=== PATIENT | male | born 1950 | race Caucasian/White ===

== ENCOUNTER 2022-12-29 13:31 | Observation (INO) | payer BC, MEDICARE ==
--- NOTE | 2022-12-29 14:38 | ED ---
General Adult HPI <Satish Engel - Last Filed: 12/29/22 14:39> <Darling Castro - Last Filed: 12/29/22 23:43> - General Stated complaint: Abd Pain L side - History of Present Illness Initial comments: 72-year-old male presents to the ED with a chief complaint of abdominal pain. States that since this morning has some left lower abdominal pain. No nausea vomiting diarrhea. Last bowel movement yesterday. Denies fever. Denies blood in stool. Also notes some urinary frequency. (Satish Engel) I agree with the above HPI. Patient does have nausea now no vomiting. No fever or chills. No urinary symptoms. (Darling Castro) - Related Data Home Medications Medication Instructions Recorded Confirmed amLODIPine BESYLATE/BENAZEPRIL 1 cap PO DAILY 12/29/22 12/29/22 [Lotrel 5-10 mg Capsule] Allergies Allergy/AdvReac Type Severity Reaction Status Date / Time No Known Allergies Allergy Verified 12/29/22 23:04 Review of Systems ROS Other: All systems not noted in ROS Statement are negative. <Satish Engel - Last Filed: 12/29/22 14:39> ROS Other: All systems not noted in ROS Statement are negative. <Darling Castro - Last Filed: 12/29/22 23:43> ROS Statement: Those systems with pertinent positive or pertinent negative responses have been documented in the HPI. General Exam Limitations: no limitations General appearance: alert, in no apparent distress Eye exam: Present: normal appearance Neck exam: Present: normal inspection Extremities exam: Present: normal inspection Back exam: Present: normal inspection Neurological exam: Present: alert, oriented X3 <Satish Engel - Last Filed: 12/29/22 14:39> Respiratory exam: Present: normal lung sounds bilaterally. Absent: respiratory distress, wheezes, rales, rhonchi, stridor Cardiovascular Exam: Present: regular rate, normal rhythm, normal heart sounds. Absent: systolic murmur, diastolic murmur, rubs, gallop, clicks GI/Abdominal exam: Present: soft, tenderness (LLQ), normal bowel sounds. Absent: distended, guarding, rebound, rigid Neurological exam: Present: alert Psychiatric exam: Present: normal affect, normal mood Skin exam: Present: warm, dry, intact, normal color. Absent: rash <Darling Castro - Last Filed: 12/29/22 23:43> Course Vital Signs 12/29/22 12/29/22 12/29/22 14:37 20:57 22:31 Temperature 97.8 F 97.7 F Pulse Rate 66 58 L 61 Respiratory 18 18 Rate Blood Pressure 127/87 159/91 157/88 O2 Sat by Pulse 98 100 97 Oximetry Medical Decision Making <Satish Engel - Last Filed: 12/29/22 14:39> - Lab Data Result diagrams: 12/29/22 18:47 12/29/22 18:47 <Darling Castro - Last Filed: 12/29/22 23:43> - Medical Decision Making Quicknote portion performed. Signed Satish Engel PA-C (Satish Engel) Was pt. sent in by a medical professional or institution (, PA, POLICE OFFICER CRIME PREVENTION, urgent care, hospital, or longterm...) When possible be specific @ -No Did you speak to anyone other than the patient for history (EMS, parent, family, police, friend...)? What history was obtained from this source @ -No Did you review nursing and triage notes (agree or disagree)? Why? @ -I reviewed and agree with nursing and triage notes Were old charts reviewed (outside hosp., previous admission, EMS record, old EKG, old radiological studies, urgent care reports/EKG's, longterm records)? Report findings @ -No old charts were reviewed Differential Diagnosis (chest pain, altered mental status, abdominal pain women, abdominal pain men, vaginal bleeding, weakness, fever, dyspnea, syncope, headache, dizziness, GI bleed, back pain, seizure, CVA, palpatations, mental health)? @ -Differential Abdominal Pain Men: Appendicitis, cholecystitis, diverticulosis, ischemic bowel, pancreatitis, hepatitis, UTI, gastroenteritis, AAA, incarcerated hernia, bowel obstruction, constipation, inflammatory bowel, hepatitis, peptic ulcer disease, splenic infarction, perforated viscus, testicular torsion, this is not meant to be an all-inclusive list EKG interpreted by me (3pts min.). @ -As above X-rays interpreted by me (1pt min.). @ -None done CT interpreted by me (1pt min.). @ -8mm proximal left ureteral stone with moderate left hydronephrosis U/S interpreted by me (1pt. min.). @ -None done What testing was considered but not performed or refused? (CT, X-rays, U/S, labs)? Why? @ -None What meds were considered but not given or refused? Why? @ -None Did you discuss the management of the patient with other professionals (professionals i.e. , PA, POLICE OFFICER CRIME PREVENTION, lab, RT, psych nurse, certified social workers in health care, jacquard card cutter, teacher, security vehicle patrol officer, housing case manager)? Give summary @ -No Was smoking cessation discussed for >3mins.? @ -No Was critical care preformed (if so, how long)? @ -No Were there social determinants of health that impacted care today? How? (Homelessness, low income, unemployed, alcoholism, drug addiction, transportation, low edu. Level, literacy, decrease access to med. care, [facility], rehab)? @ -No Was there de-escalation of care discussed even if they declined (Discuss DNR or withdrawal of care, Hospice)? DNR status @ -No What co-morbidities impacted this encounter? (DM, HTN, Smoking, COPD, CAD, Cancer, CVA, ARF, Chemo, Hep., AIDS, mental health diagnosis, sleep apnea, morbid obesity)? @ -None Was patient admitted / discharged? Hospital course, mention meds given and route, prescriptions, significant lab abnormalities, going to OR and other pertinent info. @ -Admitted for kidney stone Dr. Padilla accepts admission Undiagnosed new problem with uncertain prognosis? @ -No Drug Therapy requiring intensive monitoring for toxicity (Heparin, Nitro, Insulin, Cardizem)? @ -No Were any procedures done? @ -No Diagnosis/symptom? @ -Kidney stone Acute, or Chronic, or Acute on Chronic? @ -Acute Uncomplicated (without systemic symptoms) or Complicated (systemic symptoms)? @ -Uncomplicated Side effects of treatment? @ -No Exacerbation, Progression, or Severe Exacerbation? @ -No Poses a threat to life or bodily function? How? (Chest pain, USA, CA, pneumonia, PE, COPD, DKA, ARF, appy, cholecystitis, CVA, Diverticulitis, Homicidal, Suicidal, threat to staff... and all critical care pts) @ No Dr. Gamino is my attending (Darling Castro) - Lab Data Lab Results 12/29/22 12/29/22 12/29/22 Range/Units 18:47 18:47 22:30 WBC 10.2 (3.8-10.6) k/uL RBC 4.70 (4.30-5.90) m/uL Hgb 14.6 (13.0-17.5) gm/dL Hct 42.9 (39.0-53.0) % MCV 91.2 (80.0-100.0) fL MCH 31.0 (25.0-35.0) pg MCHC 34.1 (31.0-37.0) g/dL RDW 12.0 (11.5-15.5) % Plt Count 199 (150-450) k/uL MPV 9.0 Neutrophils % 83 % Lymphocytes % 11 % Monocytes % 4 % Eosinophils % 0 % Basophils % 0 % Neutrophils # 8.5 H (1.3-7.7) k/uL Lymphocytes # 1.1 (1.0-4.8) k/uL Monocytes # 0.4 (0-1.0) k/uL Eosinophils # 0.0 (0-0.7) k/uL Basophils # 0.0 (0-0.2) k/uL Sodium 139 (137-145) mmol/L Potassium 4.5 (3.5-5.1) mmol/L Chloride 102 (98-107) mmol/L Carbon Dioxide 26 (22-30) mmol/L Anion Gap 11 mmol/L BUN 16 (9-20) mg/dL Creatinine 1.08 (0.66-1.25) mg/dL Est GFR (CKD-EPI)AfAm 79 (>60 ml/min/1.73 sqM) Est GFR (CKD-EPI)NonAf 68 (>60 ml/min/1.73 sqM) Glucose 101 H (74-99) mg/dL Calcium 9.7 (8.4-10.2) mg/dL Total Bilirubin 1.0 (0.2-1.3) mg/dL AST 33 (17-59) U/L ALT 23 (4-49) U/L Alkaline Phosphatase 99 (38-126) U/L Total Protein 8.0 (6.3-8.2) g/dL Albumin 4.6 (3.5-5.0) g/dL Amylase 63 (30-110) U/L Lipase 26 (23-300) U/L Urine Color Light Yellow Urine Appearance Clear (Clear) Urine pH 7.0 (5.0-8.0) Ur Specific [place] 1.011 (1.001-1.035) Urine Protein Negative (Negative) Urine Glucose (UA) Negative (Negative) Urine Ketones Negative (Negative) Urine Blood Negative (Negative) Urine Nitrite Negative (Negative) Urine Bilirubin Negative (Negative) Urine Urobilinogen <2.0 (<2.0) mg/dL Ur Leukocyte Esterase Negative (Negative) Disposition <Satish Engel - Last Filed: 12/29/22 14:39> <Darling Castro - Last Filed: 12/29/22 23:43> Clinical Impression: Kidney stone Disposition: ADMITTED IP TO THIS [facility] Condition: Good Referrals: Carlos Gonzalez [Primary Care Provider] - 1-2 days
[2022-12-29 19:39] LABS: Basophils % (A) 0 %; Eosinophils % (A) 0 %; HCT 42.9 % (39.0-53.0); HGB 14.6 gm/dL (13.0-17.5); Lymphocytes # (A) 1.1 k/uL (1.0-4.8); Lymphocytes % (A) 11 %; MCHC 34.1 g/dL (31.0-37.0); MCV 91.2 fL (80.0-100.0); Monocytes # (A) 0.4 k/uL (0-1.0); Monocytes % (A) 4 %; Neutrophils # (A) 8.5 k/uL (1.3-7.7); Neutrophils % (A) 83 %; Platelet Count 199 k/uL (150-450); WBC 10.2 k/uL (3.8-10.6)
[2022-12-29 19:46] LABS: ALT 23 U/L (4-49); AST 33 U/L (17-59); African American GFR (CKD) 79 (>60 ml/min/1.73 sqM); Albumin 4.6 g/dL (3.5-5.0); Alkaline Phosphatase 99 U/L (38-126); Amylase 63 U/L (30-110); Anion Gap 11 mmol/L; Blood Urea Nitrogen 16 mg/dL (9-20); Calcium 9.7 mg/dL (8.4-10.2); Carbon Dioxide 26 mmol/L (22-30); Chloride 102 mmol/L (98-107); Glucose 101 mg/dL (74-99); Lipase 26 U/L (23-300); Non-African American GFR(CKD) 68 (>60 ml/min/1.73 sqM); Potassium 4.5 mmol/L (3.5-5.1); Sodium 139 mmol/L (137-145)
--- NOTE | 2022-12-29 19:59 | CT ---
EXAMINATION TYPE: CT abdomen pelvis wo con DATE OF EXAM: 12/29/2022 COMPARISON: None INDICATION: LLQ pain DLP: 683 mGycm, Automated exposure control for dose reduction was used. CONTRAST: 0 mL of Isovue 300. Study performed without Oral Contrast TECHNIQUE: Axial images were obtained from above the diaphragm to the pubic rami in the axial plane a t 5 mm thick sections. Reconstructed images are reviewed on the computer in the coronal plane. FINDINGS: Limited CT sections are obtained the lung bases. The lung bases are clear. Coronary artery calcific ation is noted. CT ABDOMEN: Liver: Normal Spleen: Normal Pancreas: Normal Adrenal glands: The adrenal glands are normal. Gallbladder: Normal Kidneys: No masses are evident. Cysts are present bilaterally. There is a moderate left hydronephrosi s. An obstructing 0.8 cm proximal left ureteral stone is present, series 201 image 45. There is a non obstructing renal stone in the inferior pole right kidney measuring 0.4 cm. Aorta: Vascular calcification is within the aorta. Inferior vena cava: Normal. CT PELVIS: Loops of bowel within the abdomen and pelvis are normal. A few diverticuli are present without acute diverticulitis. There are loops of bowel which are incompletely distended or lack oral contrast li miting their evaluation. Appendix: Normal as visualized. Urinary bladder: Normal. Genitourinary structures: Status prominent Osseous structures: No suspicious lytic or sclerotic lesions. IMPRESSIONS: 1. 0.8 cm proximal left ureteral stone with moderate left hydronephrosis. 2. Nonobstructing right renal stone. 3. Bilateral renal cysts. 4. Few scattered diverticuli without acute diverticulitis.
[2022-12-29] MEDS ORDERED: HYDROmorphone 0.5 MG/0.5 ML SYRINGE IVP STA (21:03)
[2022-12-29] MEDS ORDERED: ONDANSETRON 4 MG/2 ML VIAL IVP STA (21:21)
[2022-12-29] MEDS ORDERED: SODIUM CHLORIDE 0.9% 1,000 ML IV STA (21:21)
[2022-12-29 22:45] LABS: Appearance,Urine Clear (Clear); Bilirubin,Urine Negative (Negative); Blood,Urine Negative (Negative); Color,Urine Light Yellow; Glucose,Urine (UA) Negative (Negative); Ketones,Urine Negative (Negative); Leukocyte Esterase,Urine Negative (Negative); Nitrite,Urine Negative (Negative); Protein,Urine Negative (Negative); Specific Gravity,Urine 1.011 (1.001-1.035); Urobilinogen,Urine <2.0 mg/dL (<2.0)
[2022-12-29] MEDS ORDERED: KETOROLAC 15 MG/ML 1 ML VIAL IVP STA (23:06)
[2022-12-29] MEDS ORDERED: KETOROLAC 15 MG/ML 1 ML VIAL IVP PRN (23:12)
[2022-12-29] MEDS ORDERED: NALOXONE 0.4 MG/ML 1 ML VIAL IV PRN (23:12)
[2022-12-29] MEDS ORDERED: SODIUM CHLORIDE 0.9% 1,000 ML IV SCH (23:15)
--- NOTE | 2022-12-30 12:29 | P.GSHP ---
History of Present Illness H&P Date: 12/30/22 Chief Complaint: Left renal colic The patient is a 72-year-old white male with no prior history of urolithiasis. He was treated for a UTI in the remote past. Yesterday, he experienced left lower quadrant abdominal and flank pain. He presented to the ER for evaluation and was found to have moderate left hydronephrosis due to an 8 mm left proximal ureteral calculus. - Constitutional Constitutional: Denies fever - Cardiovascular Cardiovascular: Reports high blood pressure - Gastrointestinal Gastrointestinal: Reports abdominal pain, Reports nausea - Genitourinary (Female) Genitourinary: Reports flank pain, Denies dysuria, Denies hematuria - Genitourinary (Male) Genitourinary: Reports kidney stones Past Medical History Past Medical History: No Reported History, Hypertension History of Any Multi-Drug Resistant Organisms: None Reported Past Surgical History: No Surgical Hx Reported Past Psychological History: No Psychological Hx Reported Smoking Status: Former smoker Past Alcohol Use History: Rare Past Drug Use History: None Reported Medications and Allergies Home Medications Medication Instructions Recorded Confirmed Type amLODIPine BESYLATE/BENAZEPRIL 1 cap PO DAILY 12/29/22 12/29/22 History [Lotrel 5-10 mg Capsule] Allergies Allergy/AdvReac Type Severity Reaction Status Date / Time No Known Allergies Allergy Verified 12/29/22 23:04 Surgical - Exam Vital Signs Temp Pulse Resp BP Pulse Ox 97.8 F 66 18 127/87 98 12/29/22 14:37 12/29/22 14:37 12/29/22 14:37 12/29/22 14:37 12/29/22 14:37 - General well developed, well nourished, no distress - Neck no masses, trachea midline - Respiratory normal respiratory effort - Abdomen Abdomen: soft, non tender, no guarding, no rigid, no rebound - Genitourinary normal penis with no external lesions, testicles non-tender - Psychiatric oriented to time, oriented to person, oriented to place, speech is normal, memory intact Results - Labs 12/29/22 18:47 12/29/22 18:47 Abnormal Lab Results - Last 24 Hours (Table) 12/29/22 12/29/22 Range/Units 18:47 18:47 Neutrophils # 8.5 H (1.3-7.7) k/uL Glucose 101 H (74-99) mg/dL Diabetes panel 12/29/22 Range/Units 18:47 Sodium 139 (137-145) mmol/L Potassium 4.5 (3.5-5.1) mmol/L Chloride 102 (98-107) mmol/L Carbon Dioxide 26 (22-30) mmol/L BUN 16 (9-20) mg/dL Creatinine 1.08 (0.66-1.25) mg/dL Glucose 101 H (74-99) mg/dL Calcium 9.7 (8.4-10.2) mg/dL AST 33 (17-59) U/L ALT 23 (4-49) U/L Alkaline Phosphatase 99 (38-126) U/L Total Protein 8.0 (6.3-8.2) g/dL Albumin 4.6 (3.5-5.0) g/dL Calcium panel 12/29/22 Range/Units 18:47 Calcium 9.7 (8.4-10.2) mg/dL Albumin 4.6 (3.5-5.0) g/dL Pituitary panel 12/29/22 Range/Units 18:47 Sodium 139 (137-145) mmol/L Potassium 4.5 (3.5-5.1) mmol/L Chloride 102 (98-107) mmol/L Carbon Dioxide 26 (22-30) mmol/L BUN 16 (9-20) mg/dL Creatinine 1.08 (0.66-1.25) mg/dL Glucose 101 H (74-99) mg/dL Calcium 9.7 (8.4-10.2) mg/dL Adrenal panel 12/29/22 Range/Units 18:47 Sodium 139 (137-145) mmol/L Potassium 4.5 (3.5-5.1) mmol/L Chloride 102 (98-107) mmol/L Carbon Dioxide 26 (22-30) mmol/L BUN 16 (9-20) mg/dL Creatinine 1.08 (0.66-1.25) mg/dL Glucose 101 H (74-99) mg/dL Calcium 9.7 (8.4-10.2) mg/dL Total Bilirubin 1.0 (0.2-1.3) mg/dL AST 33 (17-59) U/L ALT 23 (4-49) U/L Alkaline Phosphatase 99 (38-126) U/L Total Protein 8.0 (6.3-8.2) g/dL Albumin 4.6 (3.5-5.0) g/dL - Imaging CT scan - abdomen: report reviewed, image reviewed Assessment and Plan (1) Hydronephrosis with renal and ureteral calculous obstruction Current Visit: Yes Status: Acute Code(s): N13.2 - HYDRONEPHROSIS WITH RENAL AND URETERAL CALCULOUS OBSTRUCTION SNOMED Code(s): 935500025 (2) Calculus of ureter Current Visit: Yes Status: Acute Code(s): N20.1 - CALCULUS OF URETER SNOMED Code(s): 41461676 Plan: I had a lengthy discussion with the patient and his . I explained to them that his left proximal ureteral calculus has a low likelihood of spontaneous passage, and in view of this I have suggested he strongly consider surgical removal of the calculus. Optimal treatment options include extracorporal shockwave lithotripsy (ESWL), and ureteroscopy with laser lithotripsy and stone basketing. The pros and cons of each were discussed in detail. The patient has elected to undergo ureteroscopic removal of the calculus. Although he is comfortable this morning, he will undergo left ureteral stent insertion later today. This will prevent future episodes of severe renal colic requiring hospitalization, and also provide ureteral dilation which will assist in ureteroscopic removal of the calculus. Potential risks associated with stent placement were discussed, including anesthesia, bleeding, infection, ureteral injury, and inability to successfully place a stent. Time with Patient: Greater than 30
[2022-12-30] MEDS ORDERED: IV FLUID CONTINUATION 250 ML IV ONE (14:24)
[2022-12-30] MEDS ORDERED: ONDANSETRON 4 MG/2 ML VIAL ONE (14:29)
[2022-12-30] MEDS ORDERED: ONDANSETRON 4 MG/2 ML VIAL IVP ONE (14:38)
[2022-12-30] MEDS ORDERED: DEXAMETHASONE SOD PHOSPHATE 4 MG/ML 1 ML VIAL IVP ONE (14:39)
[2022-12-30] MEDS ORDERED: PROPOFOL 10 MG/ML 20 ML VIAL IV ONE (15:58)
[2022-12-30] MEDS ORDERED: LIDOCAINE 2% INJ 20 MG/ML (2 ML VIAL) ONE (15:58)
[2022-12-30] MEDS ORDERED: fentaNYL (PF) 50 MCG/ML 2 ML AMP ONE (15:58)
[2022-12-30] MEDS ORDERED: SUCCINYLCHOLINE CHLORIDE 200 MG/10 ML VIAL IV ONE (15:58)
[2022-12-30] MEDS ORDERED: MIDAZOLAM 2 MG/2 ML VIAL ONE (15:58)
[2022-12-30] MEDS ORDERED: SODIUM CHLORIDE 0.9% 50 ML with ceFAZolin 2,000 MG IV ONE ×2 (16:09)
[2022-12-30] MEDS ORDERED: LACTATED RINGERS 1,000 ML IV ONE (16:23)
--- NOTE | 2022-12-30 16:35 | P.OP ---
Date of Procedure: 12/30/22 Preoperative Diagnosis: Left ureteral calculus Postoperative Diagnosis: Same Procedure(s) Performed: cystoscopy, left ureteral stent insertion Anesthesia: MIRIAM Surgeon: Gurinder Padilla Estimated Blood Loss (ml): 0 IV fluids (ml): 400 Pathology: none sent Condition: stable Disposition: PACU Indications for Procedure: The patient is a 72-year-old white male with no prior history of urolithiasis. Yesterday, he experienced left lower quadrant abdominal and flank pain. He presented to the ER for evaluation and was found to have moderate left hydronephrosis due to an 8 mm left proximal ureteral calculus. He was admitted for treatment of intractable symptoms and will undergo placement of a left ureteral stent. Operative Findings: Radio-opaque left proximal ureteral calculus. Successful left ureteral stent insertion. Description of Procedure: The patient was taken to the operating room and placed in the dorsolithotomy position, with legs supported in Melvin stirrups. The external genitalia was prepped and draped sterilely. The 30 lens was used to introduce the 22-Martiniquais Stortz cystoscopic sheath through the urethra and into the bladder under direct vision. The prostatic urethra showed evidence of moderate lateral lobe enlargement. The bladder was examined in its entirety. Both ureteral orifices were of normal anatomic location and configuration. No tumors or foreign bodies were seen. The bladder showed evidence of moderate to severe trabeculation. A 0.035 inch Glidewire was passed through the cystoscope. The left ureteral orifice was cannulated, and the Glidewire was slowly advanced up to the renal pelvis. Minimal resistance was noted as the Glidewire was passed beyond the calculus, which was radio-opaque. A 26 cm, 4.8-Martiniquais double-J ureteral stent] was placed over the wire. Proper stent positioning was verified fluoroscopically and endoscopically. The bladder was emptied and the cystoscope removed. The patient tolerated the procedure well was taken to the recovery room in stable condition.
[2022-12-30 16:43] VITALS: RESP 16
[2022-12-30] MEDS ORDERED: amLODIPine 5 MG TAB PO ONE (16:45)
--- NOTE | 2022-12-30 16:59 | FL ---
Intraoperative/procedural fluoroscopic services were provided for cystoscopy with left ureteral stent placement. Total fluoroscopy time is 3 seconds with a total of 1 submitted image to PACS. Total DAP 0.3841 Gycm2. Please see the operative note for further details.
[2022-12-30 18:27] VITALS: BP 139/79; PULSE 59; TEMP 98.1
--- NOTE | 2022-12-30 19:02 | P.DS ---
Providers Date of admission: 12/29/22 23:30 Expected date of discharge: 12/30/22 Attending physician: Gurinder Padilla Primary care physician: Carlos Gonzalez - Discharge Diagnosis(es) (1) Hydronephrosis with renal and ureteral calculous obstruction Current Visit: Yes Status: Acute (2) Calculus of ureter Current Visit: Yes Status: Acute Hospital Course: The patient was admitted with intractable pain due to an 8 mm left proximal ureteral calculus. He was treated with parenteral analgesics and IV hydration. His pain improved. He elected to undergo placement of a left ureteral stent, and was subsequently discharged home. Arrangements will be made for him to undergo elective ureteroscopic removal of the calculus. Procedures: Cystoscopy, left ureteral stent insertion on 12/30/2022. Patient Condition at Discharge: Good Plan - Discharge Summary New Discharge Prescriptions: New Ketorolac [Toradol] 10 mg PO Q6HR PRN #10 tab PRN Reason: Pain RX: Tamsulosin [Flomax] 0.4 mg PO DAILY #30 cap No Action amLODIPine BESYLATE/BENAZEPRIL [Lotrel 5-10 mg Capsule] 1 cap PO DAILY Discharge Medication List amLODIPine BESYLATE/BENAZEPRIL [Lotrel 5-10 mg Capsule] 1 cap PO DAILY 12/29/22 [History] Ketorolac [Toradol] 10 mg PO Q6HR PRN #10 tab 12/30/22 [Rx] RX: Tamsulosin [Flomax] 0.4 mg PO DAILY #30 cap 12/30/22 [Rx] Follow up Appointment(s)/Referral(s): Carlos Gonzalez [Primary Care Provider] - 1-2 days Activity/Diet/Wound Care/Special Instructions: prescriptions sent to pharmacy activity as tolerated
[2022-12-31] MEDS ORDERED: AMLODIPINE BESYLATE PO SCH (09:00)
[2022-12-31] MEDS ORDERED: BENAZEPRIL PO SCH (09:00)
[2022-12-31] MEDS ORDERED: lisinopriL 10 MG TAB PO SCH (09:00)
[2022-12-31] MEDS ORDERED: [UNRECOGNIZED DRUG - OTHER] PO SCH (09:00)
[2022-12-31] MEDS ORDERED: amLODIPine 5 MG TAB PO SCH (09:00)
== END 2022-12-30 19:52 | disposition home or self-care (01) ==
LOC: EC 13:31 → 6NMEDSUR 23:30
PROVIDERS: ADMIT Urology; ATTEND Urology
DX: N13.6 Pyonephrosis (principal); Z87.891 Personal history of nicotine dependence; I10 Essential (primary) hypertension; Z79.899 Other long term (current) drug therapy; Z87.440 Personal history of urinary (tract) infections
CPT/HCPCS: 52332; 96361 ×2; 96374; 96375; 99285; 36415; 80053; 82150; 83690; 85025; 81003; 74176; G0378 ×2; C2625; C1769; J2250; J0330; J1100; J2405; J0690; J3010; J1885; J2704; J1170; J2001

== ENCOUNTER 2023-09-22 02:33 | Emergency (ER) | payer MEDICARE ==
[2023-09-22 02:44] VITALS: RESP 18; TEMP 97.9
--- NOTE | 2023-09-22 03:19 | ED ---
General Adult HPI - General Chief complaint: Skin/Abscess/Foreign Body Stated complaint: tick bite, sweaty, dizzy Time Seen by Provider: 09/22/23 02:42 Source: family Mode of arrival: ambulatory Limitations: no limitations - History of Present Illness Initial comments: 73-year-old male presenting to the ED with complaint of tick bite. Patient states that he was outside a few days ago and yesterday noticed a tick to his left inner thigh. States this morning, woke up with chills, sweats, nausea, fatigue, and generalized malaise. Also reports that he feels like a pill is stuck in his esophagus reporting the sensation is in the middle of his chest h owever denies any chest pain or shortness of breath. Reports he is unknown how long the tick has been on him for however removed this yesterday. Due to symptoms and recent tick bite prompting presentation to the ED for further evaluation. Unsure if he had a fever at home. No abdominal pain. No joint pains. Patient does note a rash forming around the tick bite. No other complaints at this time. - Related Data Home Medications Medication Instructions Recorded Confirmed amLODIPine BESYLATE/BENAZEPRIL 1 cap PO DAILY 12/29/22 01/11/23 [Lotrel 5-10 mg Capsule] Previous Rx's Medication Instructions Recorded Tamsulosin [Flomax] 0.4 mg PO DAILY #30 cap 12/30/22 HYDROcodone/APAP 5-325MG [[place] 1 - 2 tab PO Q4HR PRN #6 tab 01/13/23 5-325] Ondansetron [Zofran] 4 mg PO Q6HR PRN #6 tab 01/13/23 Doxycycline [Vibramycin] 100 mg PO BID #20 capsule 09/22/23 Ondansetron Odt [Zofran Odt] 4 mg PO Q8HR PRN #10 tab 09/22/23 Allergies Allergy/AdvReac Type Severity Reaction Status Date / Time No Known Allergies Allergy Verified 09/22/23 02:40 Review of Systems ROS Statement: Those systems with pertinent positive or pertinent negative responses have been documented in the HPI. ROS Other: All systems not noted in ROS Statement are negative. Past Medical History Past Medical History: Hypertension Additional Past Medical History / Comment(s): kidney stones, History of Any Multi-Drug Resistant Organisms: None Reported Past Surgical History: No Surgical Hx Reported Additional Past Surgical History / Comment(s): ureteral stent Past Anesthesia/Blood Transfusion Reactions: No Reported Reaction Past Psychological History: No Psychological Hx Reported Smoking Status: Former smoker Past Alcohol Use History: None Reported Past Drug Use History: None Reported General Exam Limitations: no limitations General appearance: alert, in no apparent distress Eye exam: Present: normal appearance ENT exam: Present: other (Tolerating secretions. No stridor) Neck exam: Present: normal inspection. Absent: meningismus Respiratory exam: Present: normal lung sounds bilaterally Cardiovascular Exam: Present: regular rate, normal rhythm GI/Abdominal exam: Present: soft, normal bowel sounds. Absent: distended, tenderness, guarding, rebound, rigid Extremities exam: Present: other (Patient does have a scab forming on his right upper medial thigh where patient reports the tick was attached to him with surrounding erythema. No central clearing. No warmth or significant tenderness to palpation.) Back exam: Present: normal inspection Neurological exam: Present: alert, oriented X3, CN II-XII intact Skin exam: Present: warm, dry Course Vital Signs 09/22/23 02:39 Temperature 97.9 F Pulse Rate 64 Respiratory 18 Rate Blood Pressure 131/82 O2 Sat by Pulse 98 Oximetry Medical Decision Making - Medical Decision Making Was pt. sent in by a medical professional or institution ([facility], [facility], urgent care, hospital, or skilled nursing...) When possible be specific @ -No Did you speak to anyone other than the patient for history (EMS, parent, family, police, friend...)? What history was obtained from this source @ -No Did you review nursing and triage notes (agree or disagree)? Why? @ -I reviewed and agree with nursing and triage notes Were old charts reviewed (outside hosp., previous admission, EMS record, old EK G, old radiological studies, urgent care reports/EKG's, skilled nursing records)? Report findings @ -No old charts were reviewed Differential Diagnosis (chest pain, altered mental status, abdominal pain women, abdominal pain men, vaginal bleeding, weakness, fever, dyspnea, syncope, headache, dizziness, GI bleed, back pain, seizure, CVA, palpatations, mental health, musculoskeletal)? @ -Differential Fever: Pneumonia, viral URI, endocarditis, myocarditis, pericarditis, otitis, sinusi tis, peritonsillar Abscess, retropharyngeal Abscess, epiglottitis, peritonitis, appendicitis, [place] cystitis, diverticulitis, hepatitis, colitis, UTI, PID, TOA, pyelonephritis, prostatitis, epididymitis, meningitis, encephalitis, pulmonary embolism, CVA, thyroid storm, pancreatitis, adrenal crisis, cavernous sinus thrombosis, this is not meant to be an all-inclusive list. EKG interpreted by me (3pts min.). @ -EKG interpreted me that shows a sinus rhythm at [address] or T wave changes. WA 169, QRS 90, QT/QTc 400/412. X-rays interpreted by me (1pt min.). @ -X-ray interpreted me which revealed no evidence of acute finding. CT interpreted by me (1pt min.). @ -None done U/S interpreted by me (1pt. min.). @ -None done What testing was considered but not performed or refused? (CT, X-rays, U/S, labs)? Why? @ -None What meds were considered but not given or refused? Why? @ -None Did you discuss the management of the patient with other professionals (professionals i.e. , PA, LOG DECKMAN, lab, RT, psych nurse, social media executive, office machines teacher, teacher, planned giving officer, special education case manager)? Give summary @ -No Was smoking cessation discussed for >3mins.? @ -No Was critical care preformed (if so, how long)? @ -No Were there social determinants of health that impacted care today? How? (Homelessness, low income, unemployed, alcoholism, drug addiction, transportation, low edu. Level, literacy, decrease access to med. care, residential, r ehab)? @ -No Was there de-escalation of care discussed even if they declined (Discuss DNR or withdrawal of care, Hospice)? DNR status @ -No What co-morbidities impacted this encounter? (DM, HTN, Smoking, COPD, CAD, Cancer, CVA, ARF, Chemo, Hep., AIDS, mental health diagnosis, sleep apnea, morbid obesity)? @ -None Was patient admitted / discharged? Hospital course, mention meds given and route, prescriptions, significant lab abnormalities, going to OR and other pertinent info. @ -Discharge 73-year-old male presenting to the ED with complaints of chills, fatigue, nausea, and generalized malaise onset this morning. Notes over the weekend noticed he had a tick which he removed yesterday. On examination neurologic exam unremarkable. On left medial upper thigh there is a scab with surrounding erythema. No bull's-eye rash. Laboratory studies reviewed. CBC shows an elevated white blood cell count 12.7, elevated neutrophils at 11.8. Chemistry panel unremarkable. Troponin undetectable. UA unremarkable. Serology panel unremarkable. EKG showed a normal sinus rhythm with no AV block. Chest x-ray revealed no evidence of acute finding. In regards to patient's symptoms, likely viral in nature and unlikely to be secondary to Lyme disease however due to rash formation on examination with known tick bite with unknown time of attachment and unknown species, patient empirically started on treatment for Lyme disease. Antibody test were performed however were send outs. Advise close follow-up with his PCP in regards to today's visit and antibody testing. Discharged home in stable condition. Discussed strict return precautions with patient who verbalized agreement. Undiagnosed new problem with uncertain prognosis? @ -No Drug Therapy requiring intensive monitoring for toxicity (Heparin, Nitro, Insulin, Cardizem)? @ -No Were any procedures done? @ -No Diagnosis/symptom? @ -Tick bite, rash Acute, or Chronic, or Acute on Chronic? @ -Acute Uncomplicated (without systemic symptoms) or Complicated (systemic symptoms)? @ -Uncomplicated Side effects of treatment? @ -No Exacerbation, Progression, or Severe Exacerbation? @ -No Poses a threat to life or bodily function? How? (Chest pain, [place], [place], pneumonia, PE, COPD, DKA, ARF, appy, cholecystitis, CVA, Diverticulitis, Homicidal, Suicidal, threat to staff... and all critical care pts) @ -Unlikely - Lab Data Result diagrams: 09/22/23 03:31 09/22/23 03:31 Lab Results 09/22/23 09/22/23 09/22/23 Range/Units 03:31 03:31 03:31 WBC 12.7 H (3.8-10.6) k/uL RBC 4.96 (4.30-5.90) m/uL Hgb 15.1 (13.0-17.5) gm/dL Hct 46.4 (39.0-53.0) % MCV 93.6 (80.0-100.0) fL MCH 30.4 (25.0-35.0) pg MCHC 32.5 (31.0-37.0) g/dL RDW 11.8 (11.5-15.5) % Plt Count 209 (150-450) k/uL MPV 9.4 Neutrophils % 93 % Lymphocytes % 2 % Monocytes % 3 % Eosinophils % 1 % Basophils % 0 % Neutrophils # 11.8 H (1.3-7.7) k/uL Lymphocytes # 0.3 L (1.0-4.8) k/uL Monocytes # 0.4 (0-1.0) k/uL Eosinophils # 0.1 (0-0.7) k/uL Basophils # 0.0 (0-0.2) k/uL PT 11.0 (10.0-12.5) sec INR 1.0 (<1.2) APTT 24.0 (22.0-30.0) sec Sodium 138 (137-145) mmol/L Potassium 4.5 (3.5-5.1) mmol/L Chloride 106 (98-107) mmol/L Carbon Dioxide 26 (22-30) mmol/L Anion Gap 6 mmol/L BUN 23 H (9-20) mg/dL Creatinine 1.08 (0.66-1.25) mg/dL Est GFR (CKD-EPI)AfAm 78 (>60 ml/min/1.73 sqM) Est GFR (CKD-EPI)NonAf 68 (>60 ml/min/1.73 sqM) Glucose 105 H (74-99) mg/dL Calcium 9.1 (8.4-10.2) mg/dL Magnesium 2.0 (1.6-2.3) mg/dL Total Bilirubin 1.1 (0.2-1.3) mg/dL AST 38 (17-59) U/L ALT 28 (4-49) U/L Alkaline Phosphatase 87 (38-126) U/L Troponin I (0.000-0.034) ng/mL Total Protein 7.0 (6.3-8.2) g/dL Albumin 4.2 (3.5-5.0) g/dL Urine Color Urine Appearance (Clear) Urine pH (5.0-8.0) Ur Specific [place] (1.001-1.035) Urine Protein (Negative) Urine Glucose (UA) (Negative) Urine Ketones (Negative) Urine Blood (Negative) Urine Nitrite (Negative) Urine Bilirubin (Negative) Urine Urobilinogen (<2.0) mg/dL Ur Leukocyte Esterase (Negative) Influenza Type A (PCR) (Not Detectd) Influenza Type B (PCR) (Not Detectd) RSV (PCR) (Not Detectd) SARS-CoV-2 (PCR) (Not Detectd) 09/22/23 09/22/23 09/22/23 Range/Units 03:31 03:39 04:27 WBC (3.8-10.6) k/uL RBC (4.30-5.90) m/uL Hgb (13.0-17.5) gm/dL Hct (39.0-53.0) % MCV (80.0-100.0) fL MCH (25.0-35.0) pg MCHC (31.0-37.0) g/dL RDW (11.5-15.5) % Plt Count (150-450) k/uL MPV Neutrophils % % Lymphocytes % % Monocytes % % Eosinophils % % Basophils % % Neutrophils # (1.3-7.7) k/uL Lymphocytes # (1.0-4.8) k/uL Monocytes # (0-1.0) k/uL Eosinophils # (0-0.7) k/uL Basophils # (0-0.2) k/uL PT (10.0-12.5) sec INR (<1.2) APTT (22.0-30.0) sec Sodium (137-145) mmol/L Potassium (3.5-5.1) mmol/L Chloride (98-107) mmol/L Carbon Dioxide (22-30) mmol/L Anion Gap mmol/L BUN (9-20) mg/dL Creatinine (0.66-1.25) mg/dL Est GFR (CKD-EPI)AfAm (>60 ml/min/1.73 sqM) Est GFR (CKD-EPI)NonAf (>60 ml/min/1.73 sqM) Glucose (74-99) mg/dL Calcium (8.4-10.2) mg/dL Magnesium (1.6-2.3) mg/dL Total Bilirubin (0.2-1.3) mg/dL AST (17-59) U/L ALT (4-49) U/L Alkaline Phosphatase (38-126) U/L Troponin I <0.012 (0.000-0.034) ng/mL Total Protein (6.3-8.2) g/dL Albumin (3.5-5.0) g/dL Urine Color Light Yellow Urine Appearance Clear (Clear) Urine pH 8.0 (5.0-8.0) Ur Specific [place] 1.019 (1.001-1.035) Urine Protein Negative (Negative) Urine Glucose (UA) Negative (Negative) Urine Ketones 1+ H (Negative) Urine Blood Negative (Negative) Urine Nitrite Negative (Negative) Urine Bilirubin Negative (Negative) Urine Urobilinogen <2.0 (<2.0) mg/dL Ur Leukocyte Esterase Negative (Negative) Influenza Type A (PCR) Not Detected (Not Detectd) Influenza Type B (PCR) Not Detected (Not Detectd) RSV (PCR) Not Detected (Not Detectd) SARS-CoV-2 (PCR) Not Detected (Not Detectd) Disposition Clinical Impression: Tick bite, Rash Disposition: HOME SELF-CARE Condition: Good Instructions (If sedation given, give patient instructions): Lyme Disease (ED), Tick Bite (ED) Additional Instructions: Please return to the Emergency Department if symptoms worsen or any other concerns. Please follow-up with your primary care provider. Take [id number] medications as needed for symptoms. Prescriptions: Doxycycline [Vibramycin] 100 mg PO BID #20 capsule Ondansetron Odt [Zofran Odt] 4 mg PO Q8HR PRN #10 tab PRN Reason: Nausea Is patient prescribed a controlled substance at d/c from ED?: No Referrals: Carlos Gonzalez [Primary Care Provider] - 1-2 days Time of Disposition: 05:23
[2023-09-22] MEDS: ONDANSETRON 4 MG/2 ML VIAL IVP STA (03:56)
[2023-09-22 03:59] LABS: Basophils % (A) 0 %; Eosinophils # (A) 0.1 k/uL (0-0.7); Eosinophils % (A) 1 %; HCT 46.4 % (39.0-53.0); HGB 15.1 gm/dL (13.0-17.5); Lymphocytes # (A) 0.3 k/uL (1.0-4.8); Lymphocytes % (A) 2 %; MCH 30.4 pg (25.0-35.0); MCHC 32.5 g/dL (31.0-37.0); MCV 93.6 fL (80.0-100.0); Mean Platelet Volume 9.4; Monocytes # (A) 0.4 k/uL (0-1.0); Monocytes % (A) 3 %; Neutrophils # (A) 11.8 k/uL (1.3-7.7); Neutrophils % (A) 93 %; Platelet Count 209 k/uL (150-450); RBC 4.96 m/uL (4.30-5.90); RDW 11.8 % (11.5-15.5); WBC 12.7 k/uL (3.8-10.6)
[2023-09-22] MEDS: KETOROLAC 15 MG/ML 1 ML VIAL IVP STA (03:59)
[2023-09-22] MEDS: SODIUM CHLORIDE 0.9% 1,000 ML IV ONE (03:59)
[2023-09-22 04:33] LABS: ALT 28 U/L (4-49); AST 38 U/L (17-59); African American GFR (CKD) 78 (>60 ml/min/1.73 sqM); Albumin 4.2 g/dL (3.5-5.0); Alkaline Phosphatase 87 U/L (38-126); Anion Gap 6 mmol/L; Blood Urea Nitrogen 23 mg/dL (9-20); Calcium 9.1 mg/dL (8.4-10.2); Carbon Dioxide 26 mmol/L (22-30); Chloride 106 mmol/L (98-107); Glucose 105 mg/dL (74-99); Non-African American GFR(CKD) 68 (>60 ml/min/1.73 sqM); Potassium 4.5 mmol/L (3.5-5.1); Sodium 138 mmol/L (137-145); Total Bilirubin 1.1 mg/dL (0.2-1.3)
[2023-09-22 04:48] LABS: Appearance,Urine Clear (Clear); Bilirubin,Urine Negative (Negative); Blood,Urine Negative (Negative); Color,Urine Light Yellow; Glucose,Urine (UA) Negative (Negative); Ketones,Urine 1+ (Negative); Leukocyte Esterase,Urine Negative (Negative); Nitrite,Urine Negative (Negative); Protein,Urine Negative (Negative); Specific Gravity,Urine 1.019 (1.001-1.035); Urobilinogen,Urine <2.0 mg/dL (<2.0)
[2023-09-22 05:46] VITALS: BP 120/82; PULSE 69
--- NOTE | 2023-09-22 07:20 | XR ---
EXAMINATION TYPE: XR chest 2V DATE OF EXAM: 09/22/2023 COMPARISON: None HISTORY: 73-year-old male with chest pain TECHNIQUE: PA and lateral views FINDINGS: Heart normal size. Aorta and pulmonary vasculature within normal limits. Epicardial fat pad along the cardiac apex. Mild interstitial prominence has a chronic appearance. No consolidation or pleural eff usion. IMPRESSION: No acute process seen.
== END 2023-09-22 05:44 | disposition home or self-care (01) ==
LOC: EC 02:33
DX: S70.362A Insect bite (nonvenomous), left thigh, initial encounter (principal); Z87.891 Personal history of nicotine dependence; W57.XXXA Bitten or stung by nonvenomous insect and other nonvenomous arthropods, initial encounter
CPT/HCPCS: 36415; 93005; 80053; 83735; 84484; 85025; 85610; 85730; 81003; 86618; 87636; 71046; 99284; 96374; 96375; 96361; J2405; J1885